=== PATIENT | female | born 1980 | race American Indian/Alaskan Native ===

== ENCOUNTER 2021-08-02 14:18 | Inpatient (IN) | payer MEDICAID ==
[2021-08-02] MEDS ORDERED: ePHEDrine SULFATE 50 MG/1 ML INJ IV PRN (14:53)
[2021-08-02] MEDS ORDERED: fentaNYL 100 MCG/2 ML INJ IV PRN (14:53)
[2021-08-02] MEDS ORDERED: miSOPROStol 200 MCG TAB PR PRN (14:53)
[2021-08-02] MEDS ORDERED: LIDOCAINE (2%) 20 MG/1 ML VIAL 20 ML MDV INFILTRATI ONE (14:53)
[2021-08-02] MEDS ORDERED: NALOXONE 0.4 MG/1 ML INJ IV PRN (14:53)
[2021-08-02] MEDS ORDERED: OXYTOCIN 10 UNIT/1 ML INJ IM PRN (14:53)
[2021-08-02] MEDS ORDERED: ACETAMINOPHEN 325 MG TAB PO PRN (14:53)
[2021-08-02] MEDS ORDERED: CARBOPROST TROMETHAMINE 250 MCG/1 ML INJ IM PRN (14:53)
[2021-08-02] MEDS ORDERED: TERBUTALINE 1 MG/1 ML INJ SUB-Q PRN (14:53)
[2021-08-02] MEDS ORDERED: MINERAL OIL 30 ML ORAL LIQD PO PRN (14:53)
[2021-08-02] MEDS ORDERED: PROMETHAZINE 25 MG RECT SUPP PR PRN (14:53)
[2021-08-02] MEDS ORDERED: LOPERAMIDE 2 MG CAP PO PRN (14:53)
--- NOTE | 2021-08-02 14:53 | History and Physical Report ---
History of Present Illness Date of examination: 08/02/21 Date of admission: 08/02/21 14:42 Chief complaint: Sent from [facility] for delivery d/t elevated blood pressures during [facility] office visit. History of present illness: Pt is a who presents today for IOL d/t elevated blood pressures at 37.6 wks at her [facility] appointment ( BPs #1 159/113, #2 140/100). She was being followed by [facility] d/t Tobias CHAU. This has been complicated by + HIV 4th generation testing with reflexes being negative. Per ID, this is a false positive HIV. She also alpha thalassemia carrier positive, Tobias, has elevated liver enzymes, and is HSV 2 positive. She had limited visits with [facility]. Her last BPP was today, 08/02, and it was reported as 8/8. She had a growth scan on 07/15 with an EFW of 2785g (64%). EDC Confirmation: 08/17/2021 Gestational Age: 37.6 weeks on admission Past History : 8 Term Births: 3 Premature Births: 0 Living Children: 3 Para: 3 Mult. Births: 0 Prev : 0 Aborta: 4 Elect. Ab: 4 Spont. Ab: 0 Ectopics: 0 # 1 Delivery date: 2001 Weeks Gestation: Full term Delivery type: Anesthesia type: epidural Infant Sex: Male weight: 7-0 # 2 Delivery type: EAB Comments: Does not remember the details or the year. # 3 Delivery date: 2007 Weeks Gestation: Full term Delivery type: Anesthesia type: epidural Infant Sex: Female Comments: 6-8 # 4 Delivery date: 2015 Weeks Gestation: Full term labor: no Delivery type: Anesthesia type: epidural Infant Sex: Female weight: 6-7 # 5 Delivery type: EAB Comments: Does not remember the details or how many weeks. States no complications. # 6 Delivery type: EAB Comments: Does not remember the details or how many weeks. # 7 Delivery type: EAB Comments: Does not remember the details. Past Medical History: Reviewed and updated today: Hypertension Past Surgical History: Reviewed and updated today: negative Family History Summary: Mother - Has Family History of Hypertension - Entered On: 07/03/2021 Social History: Patient is single Smoking History: Patient is a former smoker. 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 % Sun Exposure: rarely Family History Risk Factors: Family History of NV in 1 Female Relative Age < 65: no Family History of NV in 1 Male Relative Age < 55: no No Dietary Counseling Reason: pn yes Past Medical History Anesthesia Complications: negative Anemia: negative Autoimmune Disorder: negative Bleeding Disorder: negative Blood Transfusions: negative Breast Disease: negative Diabetes: negative Heart Disease: negative Hypertension: positive Hepatitis/Liver Disease: negative Kidney Disease/UTI: negative Neurologic/Epilepsy/Migraines: negative Phlebitis/Varicosities: negative Psychiatric: negative Pulmonary Disease/Asthma: negative Thyroid Disease: negative Hospitalizations: negative 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 Infection History Hx of STD: none HIV Risk Eval: no Hepatitis B Risk Eval: low risk Personal hx. of genital herpes: yes Partner hx. of genital herpes: yes Rash, Viral, or Febrile illness since last LMP? no Varicella/Chicken Pox Status: Previous Disease TB Risk: no Genetic History ADVANCED MATERNAL AGE Congenital Heart Defect: Mom: no Dad: no Chari Disease: Mom: no Dad: no Thalassemia Mom: yes Dad: no Neural Tube Defect Mom: no Dad: no Down's Syndrome Mom: no Dad: no Colton-Sachs Mom: no Dad: no Sickle Cell Disease/Trait Mom: no Dad: no Hemophilia Mom: no Dad: no Muscular Dystrophy Mom: no Dad: no Cystic Fibrosis Mom: no Dad: no Renay Chorea Mom: no Dad: no Mental Retardation Mom: no Dad: no Fragile X Mom: no Dad: no Other Genetic/Chromosomal Disorder Mom: no Dad: no Child w/other defect Mom: no Dad: no Enviromental Exposures Xray Exposure: no Medication, drug, or alcohol use since LMP: no Chemical/Other Exposure: no Exposure to Cat Liter: no Hx of Parvovirus (Fifth Disease): no Occupational Exposure to Children: none Current Allergies (reviewed today): No known allergies Past History Past Medical History: hypertension, hematologic disorders (Alpha thalassemia carrier), other (False positive HIV testing) 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 History: herpes Family/Genetic History: hypertension Social history: single - Obstetrical History Expected Date of Delivery: 08/17/21 Actual Gestation: 37 Week(s) 6 Day(s) : 8 Para: 3 Hx # Term Pregnancies: 3 Number of Pregnancies: 0 Spontaneous Abortions: 0 Induced : 4 Number of Living Children: 3 Medications and Allergies Allergies Allergy/AdvReac Type Severity Reaction Status Date / Time No Known Allergies Allergy Unverified 08/02/21 15:21 Home Medications Medication Instructions Recorded Confirmed Last Taken Type Aspirin 81 mg PO DAILY 08/02/21 08/02/21 08/02/21 History Labetalol 100mg TAB 100 mg PO BID 08/02/21 08/02/21 08/02/21 10:00 History Valacyclovir 1 tab PO DAILY 08/02/21 08/02/21 08/02/21 History Review of Systems All systems: negative - Vital Signs Vital signs: Vital Signs Pulse BP 97 H 145/101 08/02/21 14:50 08/02/21 14:50 Temp Pulse Resp BP Pulse Ox 97 H 145/101 08/02/21 14:50 08/02/21 14:50 Pt denies CARLSON, blurred vision, spots before her eyes, chest pain, shortness of breath, and upper abdominal pain. - Physical Exam Breasts: Positive: deferred Cardiovascular: Regular rate Lungs: Positive: Normal air movement Abdomen: Positive: normal appearance, soft Genitourinary (Female): Positive: normal external genitalia, normal perenium, other (No lesions seen.) Vulva: both: normal Vagina: Positive: normal moisture Uterus: Positive: enlarged Anus/Rectum: Positive: normal perianal skin Extremities: Positive: normal Deep Tendon Reflex Grade: Normal +2 - Obstetrical FHR: category 2 Uterine Contraction Monitor Mode: External Uterine Contraction Pattern: Irregular Uterine Tone Measurement Phase: Resting Uterine Contraction Intensity: Mild Results Result Diagrams: 08/02/21 16:20 08/02/21 16:20 All other labs normal. GBS POSITIVE O POSITIVE ANTIBODY SCREEN NEGATIVE RUBELLA IMMUNE HIV POSITIVE X2 WITH REFLEX NEGATIVE PER ID FALSE POSITIVE RPR NON REACTIVE HEP B NEGATIVE Assessment and Plan A: 41 y.o. @ 37.6 wks, IOL d/t elevated blood pressures at [facility] visit. Alpha thalassemia carrier HSV 2 + cHTN Hx of elevated liver enzymes - Patient Problems (1) Thalassemia alpha carrier Current Visit: Yes Status: Acute (2) Elevated liver enzymes Current Visit: Yes Status: Acute Plan to address problem: Ordered this admission with Pre E labs. (3) Advanced maternal age in multigravida Current Visit: Yes Status: Acute Qualifiers: Trimester: third trimester Qualified Code(s): O09.523 - Supervision of elderly multigravida, third trimester (4) Chronic hypertension in Current Visit: Yes Status: Acute Plan to address problem: Admit to labor and delivery. Initiate IV. Draw admission labs. Draw Pre Eclampsia labs. Labetalol 100 mg BID ordered (home dose) Will hold off on magnesium for now. Consider starting if blood pressures become severe range. Start IOL with Pitocin 4X4. Monitor for s/sx of Pre Eclampsia. Monitor blood pressures - Anti-hypertensive IV medications will be ordered if and when needed. (5) Genital HSV Current Visit: Yes Status: Acute Qualifiers: Herpes simplex infection site: unspecified Qualified Code(s): A60.00 - Herpesviral infection of urogenital system, unspecified Plan to address problem: Has been taking Valtrex as prescribed. - Valtrex ordered on admission. (6) 37 or more weeks gestation of Current Visit: Yes Status: Acute Plan to address problem: Continuous EFM to monitor status.
[2021-08-02] MEDS ORDERED: OXYTOCIN DRIP 30 UNITS/500 ML BAG IV SCH ×2 (15:00)
--- NOTE | 2021-08-02 15:46 | Event Note ---
Date: 08/02/[address] Roman via text today and "no medsneeded. Last VL(viral load) not detectable deemed to be HIV 4th generation test false positive." Report being faxed to the office and will be scanned into the chart.
[2021-08-02] MEDS ORDERED: FLU VACC QUAD 2021-22(6MOS UP)/PF 60 MCG/0.5 ML SYRINGE IM ONE (16:29)
[2021-08-02] MEDS: LACTATED RINGERS 1,000 ML IV SCH (16:52)
[2021-08-02] MEDS: OXYTOCIN DRIP 30 UNITS/500 ML BAG IV SCH (16:53)
[2021-08-02 16:55] LABS: Alanine Aminotransferase 14 units/L (7-56); Uric Acid 3.4 mg/dL (3.5-7.6)
--- NOTE | 2021-08-02 17:14 | Ultrasound Report ---
Limited OB Ultrasound HISTORY: presentation. TECHNIQUE: Grayscale and color imaging performed. COMPARISON: None IMPRESSION: Single viable intrauterine gestation with cephalic presentation. Heart rate was 145 bpm. Signer Name: Pato Parker MD Signed: 08/02/2021 5:09 PM Workstation Name: [id number]
[2021-08-02 17:18] LABS: Hematocrit 31.7 % (30.3-42.9); Hemoglobin 9.7 gm/dl (10.1-14.3); Mean Corpuscular HGB Conc 31 % (30-34); Platelet Count 277 K/mm3 (140-440); Red Blood Count 5.24 M/mm3 (3.65-5.03)
[2021-08-02 17:20] LABS: Mean Corpuscular Volume 60 fl (79-97); Red Cell Distribution Width 20.1 % (13.2-15.2)
[2021-08-02 17:51] LABS: Bacteria,Urine 2+ /HPF (Negative); Bilirubin,Urine NEG (Negative); Blood,Urine NEG (Negative); Color,Urine Yellow (Yellow); Mucus,Urine FEW /HPF; Protein,Urine <15 mg/dL mg/dL (Negative); Urobilinogen,Urine < 2.0 mg/dL (<2.0)
[2021-08-02 17:54] LABS: Protein/Creatinine Ratio,Urine 0.24
[2021-08-02] MEDS ORDERED: DINOPROSTONE 10 MG VAG SUPP VG ONE ×2 (22:00→23:39)
--- NOTE | 2021-08-02 22:49 | Event Note ---
Date: 08/02/21 Cervical exam unchanged. Cervidil placed without difficulty.
[2021-08-02] MEDS: ONDANSETRON 4 MG/2 ML INJ IV PRN (23:26)
[2021-08-02] MEDS: BUTORPHANOL 2 MG/1 ML INJ IV PRN (23:30)
[2021-08-03] MEDS: LACTATED RINGERS 1,000 ML IV SCH ×3 (01:35→17:32)
[2021-08-03] MEDS ORDERED: valACYclovir 500 MG TAB PO SCH (10:00)
--- NOTE | 2021-08-03 10:58 | Progress Note ---
Assessment and Plan Pt denies all complaints. Reports desires to eat breakfast. Cervidil removed and SVE performed. POC and serial IOL d/w pt. Questions encouraged and addressed. Pt may have am care and breakfast. Dr. Hendrickson made aware. - Patient Problems (1) 37 or more weeks gestation of Current Visit: Yes Status: Acute (2) Advanced maternal age in multigravida Current Visit: Yes Status: Acute Qualifiers: Trimester: third trimester Qualified Code(s): O09.523 - Supervision of elderly multigravida, third trimester (3) Chronic hypertension in Current Visit: Yes Status: Acute Plan to address problem: continue Labetalol 100 mg BID Will hold off on magnesium for now. Consider starting if blood pressures become severe range. Continue IOL and start Pitocin 4X4 per protocol Monitor for s/sx of Pre Eclampsia. Monitor blood pressures - Anti-hypertensive IV medications will be ordered if and when needed. 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 Current Visit: Yes Status: Acute Subjective - Subjective Date of service: 08/03/21 Principal diagnosis: IOL, CHTN, AMA, [id number] Patient reports: movement normal, no new complaints, no loss of fluid, no vaginal bleeding, no contractions Objective - Vital Signs Vital Signs: Vital Signs - 12hr 08/02/21 08/02/21 08/02/21 23:01 23:06 23:11 Temperature Pulse Rate 113 H 122 H 123 H Respiratory Rate Blood Pressure Blood Pressure [Left] O2 Sat by Pulse 100 100 100 Oximetry O2 Sat by Pulse Oximetry [ Anterior Bilateral Throughout] 08/02/21 08/02/21 08/02/21 23:16 23:21 23:26 Temperature Pulse Rate 122 H 113 H 114 H Respiratory Rate Blood Pressure Blood Pressure [Left] O2 Sat by Pulse 99 100 99 Oximetry O2 Sat by Pulse Oximetry [ Anterior Bilateral Throughout] 08/02/21 08/02/21 08/02/21 23:31 23:36 23:41 Temperature Pulse Rate 108 H 102 H 104 H Respiratory Rate Blood Pressure Blood Pressure [Left] O2 Sat by Pulse 99 98 98 Oximetry O2 Sat by Pulse Oximetry [ Anterior Bilateral Throughout] 08/02/21 08/02/21 08/02/21 23:46 23:51 23:56 Temperature Pulse Rate 103 H 111 H 93 H Respiratory Rate Blood Pressure 119/75 Blood Pressure [Left] O2 Sat by Pulse 99 99 100 Oximetry O2 Sat by Pulse Oximetry [ Anterior Bilateral Throughout] 08/03/21 08/03/21 08/03/21 00:01 00:06 00:07 Temperature Pulse Rate 92 H 97 H 101 H Respiratory Rate Blood Pressure Blood Pressure [Left] O2 Sat by Pulse 100 96 94 Oximetry O2 Sat by Pulse Oximetry [ Anterior Bilateral Throughout] 08/03/21 08/03/21 08/03/21 00:11 00:16 00:21 Temperature Pulse Rate 89 100 H 95 H Respiratory Rate Blood Pressure Blood Pressure [Left] O2 Sat by Pulse 96 97 98 Oximetry O2 Sat by Pulse Oximetry [ Anterior Bilateral Throughout] 08/03/21 08/03/21 08/03/21 00:26 00:31 00:36 Temperature Pulse Rate 91 H 94 H 92 H Respiratory Rate Blood Pressure Blood Pressure [Left] O2 Sat by Pulse 99 98 99 Oximetry O2 Sat by Pulse Oximetry [ Anterior Bilateral Throughout] 08/03/21 08/03/21 08/03/21 00:41 00:46 00:51 Temperature Pulse Rate 105 H 104 H 96 H Respiratory Rate Blood Pressure 118/78 Blood Pressure [Left] O2 Sat by Pulse 98 98 100 Oximetry O2 Sat by Pulse Oximetry [ Anterior Bilateral Throughout] 08/03/21 08/03/21 08/03/21 00:56 01:01 01:06 Temperature Pulse Rate 98 H 96 H 105 H Respiratory Rate Blood Pressure Blood Pressure [Left] O2 Sat by Pulse 97 98 98 Oximetry O2 Sat by Pulse Oximetry [ Anterior Bilateral Throughout] 08/03/21 08/03/21 08/03/21 01:11 01:16 01:21 Temperature Pulse Rate 95 H 95 H 95 H Respiratory Rate Blood Pressure Blood Pressure [Left] O2 Sat by Pulse 99 99 97 Oximetry O2 Sat by Pulse Oximetry [ Anterior Bilateral Throughout] 08/03/21 08/03/21 08/03/21 01:26 01:31 01:36 Temperature Pulse Rate 105 H 110 H 102 H Respiratory Rate Blood Pressure Blood Pressure [Left] O2 Sat by Pulse 98 97 97 Oximetry O2 Sat by Pulse Oximetry [ Anterior Bilateral Throughout] 08/03/21 08/03/21 08/03/21 01:41 01:46 01:51 Temperature Pulse Rate 107 H 114 H 103 H Respiratory Rate Blood Pressure 104/62 Blood Pressure [Left] O2 Sat by Pulse 96 97 97 Oximetry O2 Sat by Pulse Oximetry [ Anterior Bilateral Throughout] 08/03/21 08/03/21 08/03/21 01:56 02:01 02:06 Temperature Pulse Rate 104 H 108 H 107 H Respiratory Rate Blood Pressure Blood Pressure [Left] O2 Sat by Pulse 97 97 98 Oximetry O2 Sat by Pulse Oximetry [ Anterior Bilateral Throughout] 08/03/21 08/03/21 08/03/21 02:11 02:16 02:21 Temperature Pulse Rate 105 H 105 H 109 H Respiratory Rate Blood Pressure Blood Pressure [Left] O2 Sat by Pulse 98 99 99 Oximetry O2 Sat by Pulse Oximetry [ Anterior Bilateral Throughout] 08/03/21 08/03/21 08/03/21 02:26 02:31 02:36 Temperature Pulse Rate 102 H 98 H 103 H Respiratory Rate Blood Pressure Blood Pressure [Left] O2 Sat by Pulse 100 100 100 Oximetry O2 Sat by Pulse Oximetry [ Anterior Bilateral Throughout] 08/03/21 08/03/21 08/03/21 02:41 02:46 02:50 Temperature Pulse Rate 110 H 108 H 113 H Respiratory Rate Blood Pressure 137/83 Blood Pressure [Left] O2 Sat by Pulse 100 99 Oximetry O2 Sat by Pulse Oximetry [ Anterior Bilateral Throughout] 08/03/21 08/03/21 08/03/21 02:51 02:56 03:01 Temperature Pulse Rate 103 H 106 H 105 H Respiratory Rate Blood Pressure Blood Pressure [Left] O2 Sat by Pulse 100 99 99 Oximetry O2 Sat by Pulse Oximetry [ Anterior Bilateral Throughout] 08/03/21 08/03/21 08/03/21 03:06 03:11 03:16 Temperature Pulse Rate 111 H 110 H 104 H Respiratory Rate Blood Pressure Blood Pressure [Left] O2 Sat by Pulse 99 98 99 Oximetry O2 Sat by Pulse Oximetry [ Anterior Bilateral Throughout] 08/03/21 08/03/21 08/03/21 03:21 03:26 03:31 Temperature Pulse Rate 109 H 104 H 104 H Respiratory Rate Blood Pressure Blood Pressure [Left] O2 Sat by Pulse 98 99 100 Oximetry O2 Sat by Pulse Oximetry [ Anterior Bilateral Throughout] 08/03/21 08/03/21 08/03/21 03:36 03:40 03:41 Temperature 98.3 F Pulse Rate 109 H 111 H Respiratory Rate Blood Pressure Blood Pressure [Left] O2 Sat by Pulse 99 99 Oximetry O2 Sat by Pulse Oximetry [ Anterior Bilateral Throughout] 08/03/21 08/03/21 08/03/21 03:46 03:50 03:51 Temperature Pulse Rate 111 H 106 H 115 H Respiratory Rate Blood Pressure 119/60 Blood Pressure [Left] O2 Sat by Pulse 99 99 Oximetry O2 Sat by Pulse Oximetry [ Anterior Bilateral Throughout] 08/03/21 08/03/21 08/03/21 03:56 04:07 04:12 Temperature Pulse Rate 116 H 120 H 110 H Respiratory Rate Blood Pressure Blood Pressure [Left] O2 Sat by Pulse 100 100 99 Oximetry O2 Sat by Pulse Oximetry [ Anterior Bilateral Throughout] 08/03/21 08/03/21 08/03/21 04:17 04:22 04:27 Temperature Pulse Rate 110 H 113 H 105 H Respiratory Rate Blood Pressure Blood Pressure [Left] O2 Sat by Pulse 99 99 99 Oximetry O2 Sat by Pulse Oximetry [ Anterior Bilateral Throughout] 08/03/21 08/03/21 08/03/21 04:32 04:37 04:42 Temperature Pulse Rate 106 H 114 H 107 H Respiratory Rate Blood Pressure Blood Pressure [Left] O2 Sat by Pulse 99 98 98 Oximetry O2 Sat by Pulse Oximetry [ Anterior Bilateral Throughout] 08/03/21 08/03/21 08/03/21 04:47 04:51 04:52 Temperature Pulse Rate 102 H 103 H 113 H Respiratory Rate Blood Pressure 106/65 Blood Pressure [Left] O2 Sat by Pulse 98 98 Oximetry O2 Sat by Pulse Oximetry [ Anterior Bilateral Throughout] 08/03/21 08/03/21 08/03/21 04:57 05:02 05:07 Temperature Pulse Rate 107 H 112 H 105 H Respiratory Rate Blood Pressure Blood Pressure [Left] O2 Sat by Pulse 99 98 99 Oximetry O2 Sat by Pulse Oximetry [ Anterior Bilateral Throughout] 08/03/21 08/03/21 08/03/21 05:12 05:17 05:22 Temperature Pulse Rate 105 H 112 H 100 H Respiratory Rate Blood Pressure Blood Pressure [Left] O2 Sat by Pulse 99 97 99 Oximetry O2 Sat by Pulse Oximetry [ Anterior Bilateral Throughout] 08/03/21 08/03/21 08/03/21 05:27 05:32 05:37 Temperature Pulse Rate 110 H 99 H 96 H Respiratory Rate Blood Pressure Blood Pressure [Left] O2 Sat by Pulse 99 96 97 Oximetry O2 Sat by Pulse Oximetry [ Anterior Bilateral Throughout] 08/03/21 08/03/21 08/03/21 05:42 05:47 05:50 Temperature Pulse Rate 101 H 104 H 108 H Respiratory Rate Blood Pressure 140/78 Blood Pressure [Left] O2 Sat by Pulse 99 99 Oximetry O2 Sat by Pulse Oximetry [ Anterior Bilateral Throughout] 08/03/21 08/03/21 08/03/21 05:52 05:57 06:02 Temperature Pulse Rate 107 H 104 H 102 H Respiratory Rate Blood Pressure Blood Pressure [Left] O2 Sat by Pulse 99 97 99 Oximetry O2 Sat by Pulse Oximetry [ Anterior Bilateral Throughout] 08/03/21 08/03/21 08/03/21 06:07 06:12 06:17 Temperature Pulse Rate 106 H 100 H 105 H Respiratory Rate Blood Pressure Blood Pressure [Left] O2 Sat by Pulse 100 100 99 Oximetry O2 Sat by Pulse Oximetry [ Anterior Bilateral Throughout] 08/03/21 08/03/21 08/03/21 06:22 06:27 06:32 Temperature Pulse Rate 106 H 98 H 99 H Respiratory Rate Blood Pressure Blood Pressure [Left] O2 Sat by Pulse 99 99 98 Oximetry O2 Sat by Pulse Oximetry [ Anterior Bilateral Throughout] 08/03/21 08/03/21 08/03/21 06:37 06:42 06:47 Temperature Pulse Rate 99 H 97 H 108 H Respiratory Rate Blood Pressure Blood Pressure [Left] O2 Sat by Pulse 98 98 98 Oximetry O2 Sat by Pulse Oximetry [ Anterior Bilateral Throughout] 08/03/21 08/03/21 08/03/21 06:50 06:52 06:57 Temperature Pulse Rate 98 H 103 H 98 H Respiratory Rate Blood Pressure 114/65 Blood Pressure [Left] O2 Sat by Pulse 98 98 Oximetry O2 Sat by Pulse Oximetry [ Anterior Bilateral Throughout] 08/03/21 08/03/21 08/03/21 07:02 07:07 07:12 Temperature Pulse Rate 99 H 100 H 101 H Respiratory Rate Blood Pressure Blood Pressure [Left] O2 Sat by Pulse 98 98 99 Oximetry O2 Sat by Pulse Oximetry [ Anterior Bilateral Throughout] 08/03/21 08/03/21 08/03/21 07:15 07:17 07:22 Temperature 98.3 F Pulse Rate 98 H 105 H 101 H Respiratory 16 Rate Blood Pressure Blood Pressure 114/65 [Left] O2 Sat by Pulse 98 99 99 Oximetry O2 Sat by Pulse 99 Oximetry [ Anterior Bilateral Throughout] 08/03/21 08/03/21 08/03/21 07:27 07:32 07:37 Temperature Pulse Rate 104 H 114 H 100 H Respiratory Rate Blood Pressure Blood Pressure [Left] O2 Sat by Pulse 100 100 100 Oximetry O2 Sat by Pulse Oximetry [ Anterior Bilateral Throughout] 08/03/21 08/03/21 08/03/21 07:42 07:47 07:50 Temperature Pulse Rate 104 H 104 H 99 H Respiratory Rate Blood Pressure 139/90 Blood Pressure [Left] O2 Sat by Pulse 100 100 Oximetry O2 Sat by Pulse Oximetry [ Anterior Bilateral Throughout] 08/03/21 08/03/21 08/03/21 07:52 07:57 08:02 Temperature Pulse Rate 110 H 104 H 106 H Respiratory Rate Blood Pressure Blood Pressure [Left] O2 Sat by Pulse 98 100 100 Oximetry O2 Sat by Pulse Oximetry [ Anterior Bilateral Throughout] 08/03/21 08/03/21 08/03/21 08:07 08:12 08:17 Temperature Pulse Rate 99 H 103 H 103 H Respiratory Rate Blood Pressure Blood Pressure [Left] O2 Sat by Pulse 100 100 100 Oximetry O2 Sat by Pulse Oximetry [ Anterior Bilateral Throughout] 08/03/21 08/03/21 08/03/21 08:22 08:27 08:32 Temperature Pulse Rate 102 H 106 H 109 H Respiratory Rate Blood Pressure Blood Pressure [Left] O2 Sat by Pulse 100 100 99 Oximetry O2 Sat by Pulse Oximetry [ Anterior Bilateral Throughout] 08/03/21 08/03/21 08/03/21 08:37 08:42 08:47 Temperature Pulse Rate 99 H 106 H 110 H Respiratory Rate Blood Pressure Blood Pressure [Left] O2 Sat by Pulse 99 100 98 Oximetry O2 Sat by Pulse Oximetry [ Anterior Bilateral Throughout] 08/03/21 08/03/21 08/03/21 08:50 08:52 08:57 Temperature Pulse Rate 109 H 103 H 107 H Respiratory Rate Blood Pressure 119/68 Blood Pressure [Left] O2 Sat by Pulse 99 99 Oximetry O2 Sat by Pulse Oximetry [ Anterior Bilateral Throughout] 08/03/21 08/03/21 08/03/21 09:02 09:07 09:12 Temperature Pulse Rate 104 H 105 H 105 H Respiratory Rate Blood Pressure Blood Pressure [Left] O2 Sat by Pulse 99 99 99 Oximetry O2 Sat by Pulse Oximetry [ Anterior Bilateral Throughout] 08/03/21 08/03/21 08/03/21 09:17 09:22 09:32 Temperature Pulse Rate 110 H 110 H 104 H Respiratory Rate Blood Pressure Blood Pressure [Left] O2 Sat by Pulse 98 98 100 Oximetry O2 Sat by Pulse Oximetry [ Anterior Bilateral Throughout] 08/03/21 08/03/21 08/03/21 09:37 09:42 09:47 Temperature Pulse Rate 107 H 107 H 99 H Respiratory Rate Blood Pressure Blood Pressure [Left] O2 Sat by Pulse 99 100 98 Oximetry O2 Sat by Pulse Oximetry [ Anterior Bilateral Throughout] 08/03/21 08/03/21 08/03/21 09:52 09:57 10:02 Temperature Pulse Rate 105 H 100 H 103 H Respiratory Rate Blood Pressure Blood Pressure [Left] O2 Sat by Pulse 99 100 99 Oximetry O2 Sat by Pulse Oximetry [ Anterior Bilateral Throughout] 08/03/21 08/03/21 08/03/21 10:07 10:12 10:14 Temperature Pulse Rate 107 H 100 H 102 H Respiratory Rate Blood Pressure 133/70 133/70 Blood Pressure [Left] O2 Sat by Pulse 100 98 Oximetry O2 Sat by Pulse Oximetry [ Anterior Bilateral Throughout] 08/03/21 08/03/21 08/03/21 10:17 10:22 10:27 Temperature Pulse Rate 105 H 107 H 99 H Respiratory Rate Blood Pressure Blood Pressure [Left] O2 Sat by Pulse 100 99 98 Oximetry O2 Sat by Pulse Oximetry [ Anterior Bilateral Throughout] 08/03/21 08/03/21 08/03/21 10:32 10:37 10:42 Temperature Pulse Rate 106 H 101 H 114 H Respiratory Rate Blood Pressure Blood Pressure [Left] O2 Sat by Pulse 99 98 100 Oximetry O2 Sat by Pulse Oximetry [ Anterior Bilateral Throughout] 08/03/21 08/03/21 08/03/21 10:47 10:50 10:52 Temperature Pulse Rate 102 H 106 H 108 H Respiratory Rate Blood Pressure 127/71 Blood Pressure [Left] O2 Sat by Pulse 100 100 Oximetry O2 Sat by Pulse Oximetry [ Anterior Bilateral Throughout] - Exam Lungs: Normal air movement Abdomen: Present: normal appearance, soft, other (gravid). Absent: distention, tenderness, guarding Vulva: both: normal Uterus: Present: normal. Absent: tenderness FHR: auscultation normal, category 1 Uterine Contraction Monitor Mode: External Cervical Dilatation: 3 Cervical Effacement Percentage: 50 station: -3 Uterine Contraction Pattern: Irregular Uterine Tone Measurement Phase: Resting Extremities: normal - Labs Labs: Abnormal Labs 08/02/21 08/02/21 08/02/21 16:20 16:20 17:24 RBC 5.24 H Hgb 9.7 L MCV 60 L MCH 18 L RDW 20.1 H Creatinine 0.3 L Uric Acid 3.4 L Lactate Dehydrogenase 204 H Urine WBC (Auto) 7.0 H Urine Creatinine Urine Total Protein 08/02/21 17:24 RBC Hgb MCV MCH RDW Creatinine Uric Acid Lactate Dehydrogenase Urine WBC (Auto) Urine Creatinine 91.0 H Urine Total Protein 22 H Laboratory Results - last 24 hr 08/02/21 08/02/21 08/02/21 16:20 16:20 16:20 WBC 8.7 RBC 5.24 H Hgb 9.7 L Hct 31.7 MCV 60 L MCH 18 L MCHC 31 RDW 20.1 H Plt Count 277 Creatinine Estimated GFR Uric Acid AST ALT Lactate Dehydrogenase Urine Color Urine Turbidity Urine pH Ur Specific [place] Urine Protein Urine Glucose (UA) Urine Ketones Urine Blood Urine Nitrite Urine Bilirubin Urine Urobilinogen Ur Leukocyte Esterase Urine WBC (Auto) Urine RBC (Auto) U Epithel Cells (Auto) Urine Bacteria (Auto) Urine Mucus Urine Yeast (Budding) Urine Creatinine Protein/Creatinin Ratio Urine Total Protein Syphilis IgG/IgM Ab Nonreactive Hepatitis C Antibody Blood Type O POSITIVE Antibody Screen Negative 08/02/21 08/02/21 08/02/21 16:20 16:20 17:24 WBC RBC Hgb Hct MCV MCH MCHC RDW Plt Count Creatinine 0.3 L Estimated GFR > 60 Uric Acid 3.4 L AST 21 ALT 14 Lactate Dehydrogenase 204 H Urine Color Yellow Urine Turbidity Slightly-cloudy Urine pH 6.0 Ur Specific [place] 1.015 Urine Protein <15 mg/dl Urine Glucose (UA) Neg Urine Ketones 80 Urine Blood Neg Urine Nitrite Neg Urine Bilirubin Neg Urine Urobilinogen < 2.0 Ur Leukocyte Esterase Lg Urine WBC (Auto) 7.0 H Urine RBC (Auto) 4.0 U Epithel Cells (Auto) 2.0 Urine Bacteria (Auto) 2+ Urine Mucus Few Urine Yeast (Budding) Few Urine Creatinine Protein/Creatinin Ratio Urine Total Protein Syphilis IgG/IgM Ab Hepatitis C Antibody Non-reactive Blood Type Antibody Screen 08/02/21 17:24 WBC RBC Hgb Hct MCV MCH MCHC RDW Plt Count Creatinine Estimated GFR Uric Acid AST ALT Lactate Dehydrogenase Urine Color Urine Turbidity Urine pH Ur Specific [place] Urine Protein Urine Glucose (UA) Urine Ketones Urine Blood Urine Nitrite Urine Bilirubin Urine Urobilinogen Ur Leukocyte Esterase Urine WBC (Auto) Urine RBC (Auto) U Epithel Cells (Auto) Urine Bacteria (Auto) Urine Mucus Urine Yeast (Budding) Urine Creatinine 91.0 H Protein/Creatinin Ratio 0.24 Urine Total Protein 22 H Syphilis IgG/IgM Ab Hepatitis C Antibody Blood Type Antibody Screen
[2021-08-03] MEDS: OXYTOCIN DRIP 30 UNITS/500 ML BAG IV SCH (12:00)
--- NOTE | 2021-08-03 19:58 | Progress Note ---
Assessment and Plan Pitocin currently infusing at 20mL/hr. Pt reports mild contractions. Labor augmentation risks and benefits d/w pt. Questions encouraged and answered. SVE performed. Fetus continues to be ballotable and out of pelvis. Pt did not tolerate exam well. Pt encouraged in positions changes to optimize descent. RN requested to maintain continuous monitoring. Dr. Hendrickson made aware. - Patient Problems (1) 37 or more weeks gestation of Current Visit: Yes Status: Acute (2) Advanced maternal age in multigravida Current Visit: Yes Status: Acute Qualifiers: Trimester: third trimester Qualified Code(s): O09.523 - Supervision of elderly multigravida, third trimester (3) Chronic hypertension in Current Visit: Yes Status: Acute Plan to address problem: continue Labetalol 100 mg BID Monitor for s/sx of Pre Eclampsia. Monitor blood pressures - Anti-hypertensive IV medications and Magnesium Sulfate will be ordered if and when needed. 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 Current Visit: Yes Status: Acute Subjective - Subjective Date of service: 08/03/21 Principal diagnosis: IOL, CHTN, AMA, IUP@[id number] Patient reports: movement normal, contractions, no new complaints, no loss of fluid, no vaginal bleeding Objective - Vital Signs Vital Signs: Vital Signs - 12hr 08/03/21 08/03/21 08/03/21 07:50 07:52 07:57 Pulse Rate 99 H 110 H 104 H Blood Pressure 139/90 O2 Sat by Pulse 98 100 Oximetry 08/03/21 08/03/21 08/03/21 08:02 08:07 08:12 Pulse Rate 106 H 99 H 103 H Blood Pressure O2 Sat by Pulse 100 100 100 Oximetry 08/03/21 08/03/21 08/03/21 08:17 08:22 08:27 Pulse Rate 103 H 102 H 106 H Blood Pressure O2 Sat by Pulse 100 100 100 Oximetry 08/03/21 08/03/21 08/03/21 08:32 08:37 08:42 Pulse Rate 109 H 99 H 106 H Blood Pressure O2 Sat by Pulse 99 99 100 Oximetry 08/03/21 08/03/21 08/03/21 08:47 08:50 08:52 Pulse Rate 110 H 109 H 103 H Blood Pressure 119/68 O2 Sat by Pulse 98 99 Oximetry 08/03/21 08/03/21 08/03/21 08:57 09:02 09:07 Pulse Rate 107 H 104 H 105 H Blood Pressure O2 Sat by Pulse 99 99 99 Oximetry 08/03/21 08/03/21 08/03/21 09:12 09:17 09:22 Pulse Rate 105 H 110 H 110 H Blood Pressure O2 Sat by Pulse 99 98 98 Oximetry 08/03/21 08/03/21 08/03/21 09:32 09:37 09:42 Pulse Rate 104 H 107 H 107 H Blood Pressure O2 Sat by Pulse 100 99 100 Oximetry 08/03/21 08/03/21 08/03/21 09:47 09:52 09:57 Pulse Rate 99 H 105 H 100 H Blood Pressure O2 Sat by Pulse 98 99 100 Oximetry 08/03/21 08/03/21 08/03/21 10:02 10:07 10:12 Pulse Rate 103 H 107 H 100 H Blood Pressure 133/70 O2 Sat by Pulse 99 100 98 Oximetry 08/03/21 08/03/21 08/03/21 10:14 10:17 10:22 Pulse Rate 102 H 105 H 107 H Blood Pressure 133/70 O2 Sat by Pulse 100 99 Oximetry 08/03/21 08/03/21 08/03/21 10:27 10:32 10:37 Pulse Rate 99 H 106 H 101 H Blood Pressure O2 Sat by Pulse 98 99 98 Oximetry 08/03/21 08/03/21 08/03/21 10:42 10:47 10:50 Pulse Rate 114 H 102 H 106 H Blood Pressure 127/71 O2 Sat by Pulse 100 100 Oximetry 08/03/21 08/03/21 08/03/21 10:52 10:57 11:02 Pulse Rate 108 H 110 H 111 H Blood Pressure O2 Sat by Pulse 100 100 100 Oximetry 08/03/21 08/03/21 08/03/21 11:07 11:12 11:17 Pulse Rate 110 H 108 H 112 H Blood Pressure O2 Sat by Pulse 99 99 100 Oximetry 08/03/21 08/03/21 08/03/21 11:22 11:27 11:32 Pulse Rate 109 H 110 H 110 H Blood Pressure O2 Sat by Pulse 100 99 98 Oximetry 08/03/21 08/03/21 08/03/21 11:37 11:42 11:47 Pulse Rate 111 H 106 H 115 H Blood Pressure O2 Sat by Pulse 100 100 99 Oximetry 08/03/21 08/03/21 08/03/21 11:52 11:57 12:02 Pulse Rate 125 H 109 H 107 H Blood Pressure O2 Sat by Pulse 100 98 100 Oximetry 08/03/21 08/03/21 08/03/21 12:07 12:12 12:17 Pulse Rate 111 H 117 H 108 H Blood Pressure O2 Sat by Pulse 100 99 100 Oximetry 08/03/21 08/03/21 08/03/21 12:22 12:27 12:32 Pulse Rate 108 H 109 H 109 H Blood Pressure O2 Sat by Pulse 100 100 100 Oximetry 08/03/21 08/03/21 08/03/21 12:37 12:42 12:47 Pulse Rate 108 H 109 H 114 H Blood Pressure O2 Sat by Pulse 100 100 100 Oximetry 08/03/21 08/03/21 08/03/21 12:50 12:52 12:57 Pulse Rate 108 H 106 H 103 H Blood Pressure 126/89 O2 Sat by Pulse 100 99 Oximetry 08/03/21 08/03/21 08/03/21 13:02 13:07 13:12 Pulse Rate 115 H 108 H 107 H Blood Pressure O2 Sat by Pulse 98 99 99 Oximetry 08/03/21 08/03/21 08/03/21 13:17 13:22 13:27 Pulse Rate 112 H 107 H 114 H Blood Pressure O2 Sat by Pulse 99 99 99 Oximetry 08/03/21 08/03/21 08/03/21 13:37 13:42 13:47 Pulse Rate 114 H 111 H 114 H Blood Pressure O2 Sat by Pulse 100 100 100 Oximetry 08/03/21 08/03/21 08/03/21 13:50 13:52 13:57 Pulse Rate 111 H 113 H 113 H Blood Pressure 127/79 O2 Sat by Pulse 100 100 Oximetry 08/03/21 08/03/21 08/03/21 14:02 14:07 14:12 Pulse Rate 111 H 110 H 111 H Blood Pressure O2 Sat by Pulse 100 100 100 Oximetry 08/03/21 08/03/21 08/03/21 14:17 14:22 14:27 Pulse Rate 106 H 107 H 105 H Blood Pressure O2 Sat by Pulse 99 100 100 Oximetry 08/03/21 08/03/21 08/03/21 14:32 14:37 14:42 Pulse Rate 108 H 108 H 102 H Blood Pressure O2 Sat by Pulse 100 100 100 Oximetry 08/03/21 08/03/21 08/03/21 15:19 15:24 15:29 Pulse Rate 109 H 104 H 103 H Blood Pressure O2 Sat by Pulse 100 99 100 Oximetry 08/03/21 08/03/21 08/03/21 15:34 15:39 15:44 Pulse Rate 99 H 101 H 102 H Blood Pressure O2 Sat by Pulse 100 100 100 Oximetry 08/03/21 08/03/21 08/03/21 15:49 15:54 15:59 Pulse Rate 104 H 102 H 101 H Blood Pressure O2 Sat by Pulse 100 100 99 Oximetry 08/03/21 08/03/21 08/03/21 16:04 16:13 16:18 Pulse Rate 100 H 105 H 99 H Blood Pressure O2 Sat by Pulse 99 100 100 Oximetry 08/03/21 08/03/21 08/03/21 16:23 16:28 16:33 Pulse Rate 102 H 105 H 114 H Blood Pressure O2 Sat by Pulse 99 100 100 Oximetry 08/03/21 08/03/21 08/03/21 16:38 16:43 16:48 Pulse Rate 101 H 117 H 103 H Blood Pressure O2 Sat by Pulse 99 99 98 Oximetry 08/03/21 08/03/21 08/03/21 16:50 16:53 16:58 Pulse Rate 120 H 105 H 115 H Blood Pressure 172/104 O2 Sat by Pulse 99 100 Oximetry 08/03/21 08/03/21 08/03/21 17:03 17:08 17:13 Pulse Rate 105 H 112 H 113 H Blood Pressure O2 Sat by Pulse 99 100 99 Oximetry 08/03/21 08/03/21 08/03/21 17:18 17:23 17:28 Pulse Rate 109 H 113 H 111 H Blood Pressure O2 Sat by Pulse 99 99 99 Oximetry 08/03/21 08/03/2122 17:33 17:35 17:37 Pulse Rate 116 H 111 H 107 H Blood Pressure 138/80 126/78 O2 Sat by Pulse 98 Oximetry 08/03/21 08/03/21 08/03/21 17:38 17:43 17:48 Pulse Rate 107 H 115 H 114 H Blood Pressure O2 Sat by Pulse 98 100 99 Oximetry 08/03/21 08/03/21 08/03/21 17:51 17:53 17:58 Pulse Rate 113 H 113 H 117 H Blood Pressure 129/82 O2 Sat by Pulse 100 99 Oximetry 08/03/21 08/03/21 08/03/21 18:03 18:08 18:13 Pulse Rate 111 H 114 H 109 H Blood Pressure O2 Sat by Pulse 100 100 98 Oximetry 08/03/21 08/03/21 08/03/21 18:18 18:23 18:28 Pulse Rate 108 H 110 H 113 H Blood Pressure O2 Sat by Pulse 100 99 100 Oximetry 08/03/21 08/03/21 08/03/21 18:33 18:38 18:43 Pulse Rate 112 H 113 H 103 H Blood Pressure O2 Sat by Pulse 100 99 99 Oximetry 08/03/21 08/03/21 08/03/21 18:48 18:50 18:53 Pulse Rate 101 H 96 H 103 H Blood Pressure 136/80 O2 Sat by Pulse 99 100 Oximetry 08/03/21 08/03/21 08/03/21 18:58 19:03 19:08 Pulse Rate 112 H 106 H 106 H Blood Pressure O2 Sat by Pulse 98 99 99 Oximetry 08/03/21 08/03/21 08/03/21 19:13 19:18 19:23 Pulse Rate 102 H 98 H 107 H Blood Pressure O2 Sat by Pulse 100 100 100 Oximetry 08/03/21 08/03/21 08/03/21 19:28 19:33 19:35 Pulse Rate 98 H 100 H 101 H Blood Pressure 128/80 O2 Sat by Pulse 99 99 Oximetry 08/03/21 08/03/21 08/03/21 19:38 19:43 19:48 Pulse Rate 101 H 101 H 105 H Blood Pressure O2 Sat by Pulse 99 100 100 Oximetry - Exam Lungs: Normal air movement Abdomen: Present: normal appearance, soft. Absent: distention, tenderness, guarding Vulva: both: normal Uterus: Present: normal, other (gravid at term) FHR: auscultation normal, category 1 Uterine Contraction Monitor Mode: External Cervical Dilatation: 4.5 Cervical Effacement Percentage: 60 station: -4 Uterine Contraction Frequency (min): 2-3 Uterine Contraction Pattern: Regular Uterine Tone Measurement Phase: Contraction Uterine Contraction Intensity: Moderate Extremities: normal - Labs Labs: Abnormal Labs 08/02/21 08/02/21 08/02/21 16:20 16:20 17:24 RBC 5.24 H Hgb 9.7 L MCV 60 L MCH 18 L RDW 20.1 H Creatinine 0.3 L Uric Acid 3.4 L Lactate Dehydrogenase 204 H Urine WBC (Auto) 7.0 H Urine Creatinine Urine Total Protein 08/02/21 17:24 RBC Hgb MCV MCH RDW Creatinine Uric Acid Lactate Dehydrogenase Urine WBC (Auto) Urine Creatinine 91.0 H Urine Total Protein 22 H Laboratory Results - last 24 hr 08/02/21 10:41 SARS-CoV-2 (PCR) Negative
[2021-08-03] MEDS: ONDANSETRON 4 MG/2 ML INJ IV PRN (22:20)
[2021-08-04] MEDS: BUTORPHANOL 2 MG/1 ML INJ IV PRN (00:27)
--- NOTE | 2021-08-04 00:38 | Procedure Note ---
OB Delivery Note - Delivery Date of Delivery: 08/04/21 Composite Worker: NITESH FERMIN Estimated blood loss: 100cc - Vaginal Delivery presentation: vertex Delivery position: OA Intrapartum events: mult.variable deceleratio, other(please specify) (CHTN, AMA) Delivery induction: cervidil Delivery augmentation: pitocin Delivery monitor: external FHT, external uterine Route of delivery: Delivery placenta: spontaneous Delivery cord: 3 umbilical vessels Episiotomy: none Delivery laceration: other (inside left labia) Anesthesia: none Delivery comments: Pt received Misoprostol and Pitocin post delivery. QBL 100mL. CNM called back to bedside to evaluate pt increased lochia. Moderate lochia noted. Bladder palpable and 500mL emptied. Laceration noted on inside of left labia. Hemostatic at this time. Repair discussed with pt and pt refuses. FF below U with scant lochia. TXA 1gram ordered. Mother and baby left LDR stable. - A at 1 minute: 8 at 5 minutes: 9 Infant Gender: Male (6lbs 2oz)
[2021-08-04] MEDS ORDERED: HYDROCORTISONE 25 MG RECTAL SUPP PR PRN (01:27)
[2021-08-04] MEDS ORDERED: MAGNESIUM HYDROXIDE (MOM) ORAL LIQD UDC PO PRN (01:27)
[2021-08-04] MEDS ORDERED: HYDROcodone/ACETAMINOPHEN 5-325 MG TAB PO PRN (01:27)
[2021-08-04] MEDS ORDERED: LANOLIN/ZINC/DIMETHICONE (LANSINOH) 7 GM TP PRN (01:27)
[2021-08-04] MEDS ORDERED: BENZOCAINE/MENTHOL 20/0.5% TOP SPRAY 56 GM TP PRN (01:27)
[2021-08-04] MEDS ORDERED: ONDANSETRON 4 MG/2 ML INJ IV PRN (01:27)
[2021-08-04] MEDS ORDERED: PROMETHAZINE 25 MG TAB PO PRN (01:27)
[2021-08-04] MEDS ORDERED: diphenhydrAMINE 25 MG CAP PO PRN (01:27)
[2021-08-04] MEDS ORDERED: PROMETHAZINE 25 MG RECT SUPP PR PRN (01:27)
[2021-08-04] MEDS ORDERED: WITCH HAZEL/ GLYCERIN PAD TP PRN (01:27)
[2021-08-04] MEDS ORDERED: LACTATED RINGERS 1,000 ML ONE (01:50)
[2021-08-04] MEDS ORDERED: TRANEXAMIC ACID 1,000 MG in SODIUM CHLORIDE 0.9% 100 ML IV ONE (02:30)
[2021-08-04] MEDS: IBUPROFEN 800 MG TAB PO SCH ×3 (06:05→23:52)
[2021-08-04] MEDS: ACETAMINOPHEN 325 MG TAB PO PRN ×2 (09:15→21:48)
[2021-08-04] MEDS: DOCUSATE SODIUM 100 MG CAP PO SCH ×2 (09:15→21:47)
[2021-08-04] MEDS: PRENATAL VIT27-FE FUMARATE-FOLIC ACID VIT TAB PO SCH (09:15)
[2021-08-04 12:24] LABS: Hematocrit 25.4 % (30.3-42.9); Hemoglobin 7.6 gm/dl (10.1-14.3)
--- NOTE | 2021-08-04 13:04 | Progress Note ---
Assessment and Plan Pt reports eating and voiding without difficulty. Pt admits to mild dizziness when she's up to ambulate. Pt states, "I just get up slowly and I feel fine after that". D/w pt post delivery lab results, VS, precautions, and POC. Pt denies heavy vaginal bleeding but reports she went to the bathroom this am and passed a clot. RN to bedside and reports qbl 160g of pad with "baseball sized clot". Risks and benefits of blood transfusion d/w pt. Questions encouraged and addressed. Pt declines blood transfusion at this time. Discussed IV fluids for hydration. Pt refuses. Dr. Hendrickson made aware. Plan discussed to continue to monitor the pt. - Patient Problems (1) Chronic hypertension in Current Visit: Yes Status: Acute Plan to address problem: continue Labetalol 100 mg BID Monitor for s/sx of Pre Eclampsia. Monitor blood pressures - Anti-hypertensive IV medications and Magnesium Sulfate will be ordered if and when needed. (2) (normal spontaneous vaginal delivery) Current Visit: Yes Status: Acute Plan to address problem: continue pathway Subjective - Subjective Date of service: 08/04/21 Principal diagnosis: s/p , CHTN, AMA Patient reports: appetite normal, voiding normally, pain well controlled, ambulating normally : doing well, bottle feeding Objective - Vital Signs Latest vital signs: Vital Signs Temp Pulse Resp BP BP Pulse Ox Pulse Ox 08/04/21 11:48 98.3 F 106 H 18 106/72 98 08/04/21 09:15 105 H 131/81 08/04/21 08:52 98.7 F 105 H 20 131/81 20 L 08/04/21 07:40 98 08/04/21 05:40 98 08/04/21 03:20 99.2 F 101 H 20 130/88 98 97 08/04/21 02:56 113 H 139/69 08/04/21 02:48 106 H 100 08/04/21 02:43 108 H 100 08/04/21 02:41 98.9 F 08/04/21 02:38 103 H 100 08/04/21 02:36 106 H 127/73 08/04/21 02:33 123 H 99 08/04/21 02:28 108 H 100 08/04/21 02:23 104 H 98 08/04/21 02:21 101 H 134/75 08/04/21 02:18 104 H 98 08/04/21 02:13 101 H 98 08/04/21 02:09 107 H 140/74 08/04/21 02:08 108 H 99 08/04/21 02:07 96 H 180/94 08/04/21 02:03 104 H 99 08/04/21 01:58 107 H 100 08/04/21 01:53 100 H 100 08/04/21 01:51 103 H 138/78 08/04/21 01:48 111 H 100 08/04/21 01:43 98 H 99 08/04/21 01:38 102 H 100 08/04/21 01:35 86 136/73 08/04/21 01:33 89 97 08/04/21 01:28 98 H 99 08/04/21 01:23 115 H 99 08/04/21 01:20 75 154/93 08/04/21 01:18 86 99 08/04/21 01:13 92 H 99 08/04/21 01:08 93 H 99 08/04/21 01:05 84 152/93 08/04/21 01:03 88 99 08/04/21 00:58 86 97 08/04/21 00:53 95 H 160/90 100 08/04/21 00:48 95 H 100 08/04/21 00:43 93 H 100 08/04/21 00:39 86 151/87 08/04/21 00:38 102 H 99 08/04/21 00:35 85 166/93 08/04/21 00:33 90 100 08/04/21 00:28 103 H 100 08/04/21 00:23 101 H 99 08/04/21 00:20 99 H 90 08/04/21 00:18 98 H 100 08/04/21 00:13 99 H 100 08/04/21 00:11 94 H 154/96 08/04/21 00:08 110 H 99 08/04/21 00:06 89 116/77 08/04/21 00:03 109 H 100 08/03/21 23:58 94 H 100 08/03/21 23:53 98 H 100 08/03/21 23:48 94 H 100 08/03/21 23:43 101 H 99 08/03/21 23:38 97 H 100 08/03/21 23:36 94 H 143/88 08/03/21 23:33 97 H 99 08/03/21 23:28 101 H 99 08/03/21 23:23 105 H 98 08/03/21 23:18 95 H 99 08/03/21 23:16 97 H 93 08/03/21 23:13 111 H 100 08/03/21 23:08 105 H 98 08/03/21 23:07 104 H 138/79 08/03/21 23:03 101 H 99 08/03/21 22:58 109 H 97 08/03/21 22:53 99 H 100 08/03/21 22:48 102 H 100 08/03/21 22:43 105 H 99 08/03/21 22:41 98.7 F 08/03/21 22:38 107 H 99 08/03/21 22:36 100 H 144/85 08/03/21 22:33 107 H 98 08/03/21 22:28 104 H 98 08/03/21 22:23 114 H 99 08/03/21 22:18 100 H 100 08/03/21 22:13 96 H 99 08/03/21 22:12 100 H 154/99 08/03/21 22:11 103 H 154/99 08/03/21 22:08 113 H 100 08/03/21 22:06 105 H 166/97 08/03/21 22:03 100 H 99 08/03/21 21:58 105 H 100 08/03/21 21:53 106 H 100 08/03/21 21:48 97 H 100 08/03/21 21:43 94 H 99 08/03/21 21:38 94 H 98 08/03/21 21:36 96 H 132/85 08/03/21 21:33 98 H 99 08/03/21 21:28 97 H 100 08/03/21 21:23 100 H 99 08/03/21 21:18 105 H 99 08/03/21 21:13 99 H 98 08/03/21 21:08 107 H 98 08/03/21 21:06 98 H 141/86 08/03/21 21:03 101 H 99 08/03/21 20:58 99 H 99 08/03/21 20:53 107 H 100 08/03/21 20:48 88 100 08/03/21 20:43 99 H 98 08/03/21 20:38 98 H 98 08/03/21 20:35 96 H 135/88 08/03/21 20:33 97 H 99 08/03/21 20:28 100 H 100 08/03/21 20:23 111 H 97 08/03/21 20:18 105 H 100 08/03/21 20:13 103 H 99 08/03/21 20:08 103 H 99 08/03/21 20:07 101 H 137/92 08/03/21 20:03 98 H 99 08/03/21 19:58 109 H 99 08/03/21 19:53 106 H 99 08/03/21 19:48 105 H 100 08/03/21 19:43 101 H 100 08/03/21 19:38 101 H 99 08/03/21 19:35 101 H 128/80 08/03/21 19:33 100 H 99 08/03/21 19:28 98 H 99 08/03/21 19:23 107 H 100 08/03/21 19:18 98 H 100 08/03/21 19:13 102 H 100 08/03/21 19:08 106 H 99 08/03/21 19:03 106 H 99 08/03/21 18:58 112 H 98 08/03/21 18:53 103 H 100 08/03/21 18:50 96 H 136/80 08/03/21 18:48 101 H 99 08/03/21 18:43 103 H 99 08/03/21 18:38 113 H 99 08/03/21 18:33 112 H 100 08/03/21 18:28 113 H 100 08/03/21 18:23 110 H 99 08/03/21 18:18 108 H 100 08/03/21 18:13 109 H 98 08/03/21 18:08 114 H 100 08/03/21 18:03 111 H 100 08/03/21 17:58 117 H 99 08/03/21 17:53 113 H 100 08/03/21 17:51 113 H 129/82 08/03/21 17:48 114 H 99 08/03/21 17:43 115 H 100 08/03/21 17:38 107 H 98 08/03/21 17:37 107 H 126/78 08/03/21 17:35 111 H 138/80 08/03/21 17:33 116 H 98 08/03/21 17:28 111 H 99 08/03/21 17:23 113 H 99 08/03/21 17:18 109 H 99 08/03/21 17:13 113 H 99 08/03/21 17:08 112 H 100 08/03/21 17:03 105 H 99 08/03/21 16:58 115 H 100 08/03/21 16:53 105 H 99 08/03/21 16:50 120 H 172/104 08/03/21 16:48 103 H 98 08/03/21 16:43 117 H 99 08/03/21 16:38 101 H 99 08/03/21 16:33 114 H 100 08/03/21 16:28 105 H 100 08/03/21 16:23 102 H 99 08/03/21 16:18 99 H 100 08/03/21 16:13 105 H 100 08/03/21 16:04 100 H 99 08/03/21 15:59 101 H 99 08/03/21 15:54 102 H 100 08/03/21 15:49 104 H 100 08/03/21 15:44 102 H 100 08/03/21 15:39 101 H 100 08/03/21 15:34 99 H 100 08/03/21 15:29 103 H 100 08/03/21 15:24 104 H 99 08/03/21 15:19 109 H 100 08/03/21 14:42 102 H 100 08/03/21 14:37 108 H 100 08/03/21 14:32 108 H 100 08/03/21 14:27 105 H 100 08/03/21 14:22 107 H 100 08/03/21 14:17 106 H 99 08/03/21 14:12 111 H 100 08/03/21 14:07 110 H 100 08/03/21 14:02 111 H 100 08/03/21 13:57 113 H 100 08/03/21 13:52 113 H 100 08/03/21 13:50 111 H 127/79 08/03/21 13:47 114 H 100 08/03/21 13:42 111 H 100 08/03/21 13:37 114 H 100 08/03/21 13:27 114 H 99 08/03/21 13:22 107 H 99 08/03/21 13:17 112 H 99 08/03/21 13:12 107 H 99 08/03/21 13:07 108 H 99 08/03/21 13:02 115 H 98 08/03/21 12:57 103 H 99 Intake and Output 08/03/21 08/04/21 08/04/21 23:59 07:59 15:59 Intake Total 1000 120 Output Total 750 225 Balance 1000 -750 -105 Intake: IV 1000 Lactated Ringers 1,000 ml 1000 @ 125 mls/hr IV DIRECT DELICIA Rx#:[id number] Intake, Free Water 120 Output: Urine 750 225 Void 750 225 Other: Total, Output Amount 200 225 # Voids Void 1 1 Estimated Blood Loss 100 - Exam Breasts: Present: normal Lungs: Present: Normal air movement Abdomen: Present: normal appearance, soft. Absent: distention, tenderness, guarding Vulva: both: laceration/episiotomy (healing well, no edema, no active bleeding) Uterus: Present: normal, firm, fundal height below umbilicus Extremities: Present: normal Comments: scant lochia noted on santo-pad - Labs Labs: Abnormal lab results 08/04/21 Range/Units 12:05 Hgb 7.6 L (10.1-14.3) gm/dl Hct 25.4 L D (30.3-42.9) %
[2021-08-04] MEDS: FERROUS SULFATE 325 MG TAB PO SCH ×2 (14:13→20:04)
[2021-08-05] MEDS ORDERED: TETANUS,DIPH,PERTUSS(ACELL) VACCINE 0.5 ML SYRINGE IM ONE (06:00)
[2021-08-05] MEDS: IBUPROFEN 800 MG TAB PO SCH (06:05)
[2021-08-05] MEDS: FERROUS SULFATE 325 MG TAB PO SCH (09:05)
[2021-08-05] MEDS: DOCUSATE SODIUM 100 MG CAP PO SCH (09:06)
[2021-08-05] MEDS: PRENATAL VIT27-FE FUMARATE-FOLIC ACID VIT TAB PO SCH (09:06)
--- NOTE | 2021-08-05 12:27 | Discharge Summary ---
Providers - Providers Date of Admission: 08/02/21 14:54 Date of discharge: 08/05/21 (desires d/c home) Attending physician: TREY GRAMAJO 08/04/21 01:27 Consult to E Commerce Director [CONS] Routine Reason For Exam: assistance with , SNS Primary care physician: TREY GRAMAJO Hospitalization Reason for admission: IOL Condition: Good Pertinent studies: post delivery H&H 7.6/25.4, asymptomatic anemia d/t acute blood loss Procedures: Hospital course: and complicated by htn Disposition: 01 HOME / SELF CARE / HOMELESS Final Discharge Diagnosis (Prints w/discharge instructions): Vaginal Time spent for discharge: 25 - Discharge Diagnoses (1) (normal spontaneous vaginal delivery) Status: Acute (2) Chronic hypertension in Status: Acute Core Measure Documentation - Palliative Care Palliative Care/ Comfort Measures: Not Applicable - Core Measures Any of the following diagnoses?: none Exam - Constitutional Vitals: Temp Pulse Resp BP Pulse Ox 97.8 F 90 16 144/86 97 08/05/21 07:53 08/05/21 09:06 08/05/21 07:53 08/05/21 09:06 08/05/21 08:00 General appearance: Present: no acute distress, well-nourished - EENT Eyes: Present: PERRL ENT: hearing intact, clear oral mucosa - Neck Neck: Present: supple, normal ROM - Respiratory Respiratory effort: normal Respiratory: bilateral: CTA - Cardiovascular Rhythm: regular Heart Sounds: Absent: rub, click - Extremities Extremities: No edema Peripheral Pulses: within normal limits - Abdominal General gastrointestinal: Present: soft, non-tender, non-distended, normal bowel sounds Female genitourinary: Present: normal - Integumentary Integumentary: Present: clear, warm, dry - Musculoskeletal Musculoskeletal: gait normal, strength equal bilaterally - Psychiatric Psychiatric: appropriate mood/affect, intact judgment & insight - Neurologic Neurologic: CNII-XII intact, moves all extremities - Additional findings Additional findings: bottle feeding, lochia scant, fundus firm Plan Activity: no restrictions Diet: regular Follow up with: TREY GRAMAJO MD [Primary Care Provider] - 7 Days (Congratulations! Please call [phone] to schedule your blood pressure check and your son's circumcision in 1 week. Bring NASIMA cream to your son's appointment and wait for instructions. Call for any questions or concerns.) Forms: [facility] Discharge Summary Prescriptions: Lidocain2.5%/Prilocai2.5% [Emla] 5 gm TP ONCE PRN #1 tube PRN Reason: Pain Ferrous Sulfate [Feosol 325 MG tab] 325 mg PO BID #60 tablet labetaloL [Labetalol 100mg TAB] 100 mg PO BID #60 tab Ibuprofen [Motrin 800 MG tab] 800 mg PO Q8HR PRN #30 tablet PRN Reason: Pain
[2021-08-05 12:46] VITALS: BP 133/80
== END 2021-08-05 13:26 | disposition home or self-care (01) | DRG 774 ==
LOC: TRG 14:18 → APU 14:19 → TRG 14:41 → UNDOADMIN 14:42 → LD 14:42 → OB 08-04 03:15
PROVIDERS: ADMIT Obstetrics & Gynecology; ATTEND Obstetrics & Gynecology
PROC: 10E0XZZ Delivery of Products of Conception, External Approach (ICD-10-PCS; principal; 2021-08-04)
PROC: 0UQMXZZ Repair Vulva, External Approach (ICD-10-PCS; 2021-08-04)
PROC: 3E0234Z Introduction of Serum, Toxoid and Vaccine into Muscle, Percutaneous Approach (ICD-10-PCS; 2021-08-05)
DX: O99.824 Streptococcus B carrier state complicating childbirth (principal); O98.32 Other infections with a predominantly sexual mode of transmission complicating childbirth; O16.4 Unspecified maternal hypertension, complicating childbirth; Z20.822 Contact with and (suspected) exposure to COVID-19; D56.3 Thalassemia minor; A60.00 Herpesviral infection of urogenital system, unspecified; O76 Abnormality in fetal heart rate and rhythm complicating labor and delivery; O90.81 Anemia of the puerperium; D62 Acute posthemorrhagic anemia; O70.0 First degree perineal laceration during delivery; Z37.0 Single live birth; Z23 Encounter for immunization; Z87.891 Personal history of nicotine dependence; Z3A.37 37 weeks gestation of pregnancy
CPT/HCPCS: 36415; 59025; 59200; 76815; 81001; 82565; 82570; 83615; 84156; 84450; 84460; 84550; 85014; 85018; 85027; 86592; 86803; 86850; 86900; 86901; 88307; 96360; G0378; J3490; J0595; J2405; J2590; J3010; J7120; U0003